=== PATIENT | female | born 1960 | race Two or more races ===

== ENCOUNTER 2017-08-09 13:35 | Emergency (ER) | payer MEDICAID ==
[~2017-08-09] VITALS: Ht 157.5 cm; Wt 70.8 kg
[2017-08-09] MEDS ORDERED: NKM (13:48)
[2017-08-09] MEDS ORDERED: Lidocaine 2% Visc 15ml soln ORAL ONE (14:00)
[2017-08-09] MEDS ORDERED: Mylanta II UD 30ml ORAL ONE (14:00)
[2017-08-09] MEDS ORDERED: Dicyclomine HCl 10mg/5ml oral soln ORAL ONE (14:00)
--- NOTE | 2017-08-09 14:23 | Emergency Room Report ---
History of Present Illness General Chief Complaint: Abdominal Pain Source: Patient (Alec Ang M.D.) Present Illness HPI 57 with no sig pmhx p/w abdominal pain 2 hours. Patient states pain started suddenly, localized to epigastric and right upper quadrant, non radiating, sharp in nature, intermittent. No relieving or exacerbating factors. Severity is 5/10. Denies nvd. Denies fever, chills. No hx of abdominal surgeries. No hx of endoscopies/colonoscopies. (Alec Ang M.D.) Allergies: Coded Allergies: No Known Allergies (Unverified , 08/09/17) Patient History Past Medical History: see triage record Past Surgical History: none Pertinent Family History: none Reviewed Nursing Documentation: PMH: Agreed, PSxH: Agreed (Alec Ang M.D. ) Nursing Documentation-PMH Past Medical History: No Stated History (Alec Ang M.D.) Review of Systems All Other Systems: negative except mentioned in HPI (Alec Ang M.D.) Physical Exam Vital Signs Date Time Temp Pulse Resp B/P (MAP) Pulse Ox O2 Delivery O2 Flow Rate FiO2 08/09/17 13:41 98.1 72 16 174/96 100 Room Air Sp02 EP Interpretation: reviewed, normal General Appearance: alert, GCS 15, non-toxic, mild distress Head: normocephalic, atraumatic Eyes: bilateral eye normal inspection, bilateral eye PERRL, bilateral eye EOMI ENT: normal ENT inspection, normal pharynx, normal voice, moist mucus membranes Neck: normal inspection, full range of motion, supple Respiratory: normal inspection, lungs clear, normal breath sounds, no respiratory distress, no retraction, no wheezing, speaking full sentences, chest symmetrical Cardiovascular #1: normal inspection, regular rate, rhythm, no edema, normal capillary refill Cardiovascular #2: 2+ radial (R), 2+ radial (L) Gastrointestinal: soft, non-distended, no guarding, other - Mild right upper quadrant and epigastric tenderness, no guarding no rebound nontender all other quadrants Musculoskeletal: normal inspection, back normal, normal range of motion, non- tender Neurologic: normal inspection, alert, oriented x3, responsive, motor strength/ tone normal, sensory intact, normal gait, speech normal Psychiatric: normal inspection, judgement/insight normal, memory normal Skin: normal inspection, normal color, no rash, warm/dry, well hydrated, normal turgor (Alec Ang M.D.) Medical Decision Making Diagnostic Impression: Primary Impression: Biliary colic Additional Impression: Cholelithiasis ER Course 37-year-old female with abdominal pain Differential Diagnosis: Gastritis, gastroenteritis, cholecystitis, , UTI/pyelo At this time abdomen is nontender all quadrants aside from right upper quadrant , will hold CT for now. Plan: Basic labs, ua, ekg Pepcid, maalox, pain control, IVF RUQ sono ER course: Patient has remained stable during ED stay. Signed out the patient to Dr. Mascorro 57-year-old female with epigastric/right upper quadrant pain Pending remaining labs Pending abdominal sonogram Anticipate discharge home . Please note that this Emergency Department Report was dictated using powervaultindustrial technician technology software, occasionally this can lead to erroneous entry secondary to interpretation by the dictation equipment (Alec Ang M.D.) ER Course With the history exam and presentation, multiple differentials considered, including but not limited to appendicitis, gastritis, cholecystitis, diverticulitis Please defer to the initial history for the examination and presentation At this time patient reports that her pain is significantly improved Ultrasound reveals gallstones There is no obvious signs of pericholecystic fluid Indeterminate ultrasound for cholecystitis Gallbladder wall does not appear thickened Given the patient's improvement in pain Patient's blood work also negative white blood cells are normal Liver function tests all within normal limits with a negative lipase Obstruction also less likely I feel the patient is stable for initial conservative outpatient trial Patient was discussed regarding the need to return to the ER with any worsening symptoms increase fevers or pain as his be signs of developing infection of the gallbladder And the patient will otherwise follow up with primary physician next 2-3 days, Labs Test 08/09/17 14:00 08/09/17 15:41 White Blood Count 7.3 K/UL (4.8-10.8) Red Blood Count 4.74 M/UL (4.20-5.40) Hemoglobin 14.4 G/DL (12.0-16.0) Hematocrit 44.4 % (37.0-47.0) Mean Corpuscular Volume 94 FL (80-99) Mean Corpuscular Hemoglobin 30.3 PG (27.0-31.0) Mean Corpuscular Hemoglobin Concent 32.3 G/DL (32.0-36.0) Red Cell Distribution Width 12.5 % (11.6-14.8) Platelet Count 375 K/UL (150-450) Mean Platelet Volume 5.6 FL (6.5-10.1) Neutrophils (%) (Auto) 64.4 % (45.0-75.0) Lymphocytes (%) (Auto) 28.2 % (20.0-45.0) Monocytes (%) (Auto) 5.3 % (1.0-10.0) Eosinophils (%) (Auto) 1.4 % (0.0-3.0) Basophils (%) (Auto) 0.8 % (0.0-2.0) Sodium Level 140 MMOL/L (136-145) Potassium Level 3.7 MMOL/L (3.5-5.1) Chloride Level 103 MMOL/L (98-107) Carbon Dioxide Level 29 MMOL/L (21-32) Anion Gap 8 (5-15) Blood Urea Nitrogen 16 mg/dL (7-18) Creatinine 1.0 MG/DL (0.55-1.30) Estimat Glomerular Filtration Rate 57.1 mL/min (>60) Glucose Level 148 MG/DL (74-106) Calcium Level 8.9 MG/DL (8.5-10.1) Total Bilirubin 0.3 MG/DL (0.2-1.0) Aspartate Amino Transf (AST/SGOT) 38 U/L (15-37) Alanine Aminotransferase (ALT/SGPT) 33 U/L (12-78) Alkaline Phosphatase 126 U/L (46-116) Troponin I 0.002 ng/mL (0.000-0.056) Total Protein 7.2 G/DL (6.4-8.2) Albumin 3.8 G/DL (3.4-5.0) Globulin 3.4 g/dL Albumin/Globulin Ratio 1.1 (1.0-2.7) Lipase 141 U/L (73-393) (GRETCHEN MASCORRO.Saurabh) EKG Diagnostic Results Rate: normal Rhythm: NSR ST Segments: no acute changes ASA given to the pt in ED: No (Alec Ang M.D.) Rhythm Strip Diag. Results EP Interpretation: yes Rate: 60 Rhythm: NSR, no PVC's, no ectopy (Alec Ang M.D.) CT/MRI/US Diagnostic Results CT/MRI/US Diagnostic Results : Impression abdominal ultrasoundImpression: Cholelithiasis. Positive sonographic Cramer's sign raises concern for acute cholecystitis. Consider nuclear medicine hepatobiliary scanning is clinically indicated Negative for dilated ducts or other significant abnormality Findings discussed by phone with Dr. Mascorro at the time of interpretation (GRETCHEN MASCORRO D.O.) Last Vital Signs Date Time Temp Pulse Resp B/P (MAP) Pulse Ox O2 Delivery O2 Flow Rate FiO2 08/09/17 13:41 98.1 72 16 174/96 100 Room Air (Alec Ang M.D.) Status: improved (GRETCHEN MASCORRO D.O.) Disposition: HOME, SELF-CARE Condition: Improved Scripts Famotidine (PEPCID) 40 Mg Tablet 40 MG PO DAILY, #7 TAB 0 Refills Prov: GRETCHEN MASCORRO D.O. 08/09/17 Ibuprofen* (MOTRIN*) 600 Mg Tablet 600 MG ORAL Q8H Y for For Pain, #30 TAB 0 Refills Prov: GRETCHEN MASCORRO D.O. 08/09/17 Hydrocodone Bit/Acetaminophen 5-325* (NORCO 5-325*) 1 Each Tablet 1 TAB ORAL Q6H Y for For Pain, #10 TAB 0 Refills Prov: GRETCHEN MASCORRO D.O. 08/09/17 Additional Instructions: Patient is provided with the discharge instructions notified to follow up with primary doctor in the next 2-3 days otherwise return to the er with any worsening symptoms. Please note that this report is being documented using [employer] technology. This can lead to erroneous entry secondary to incorrect interpretation by the dictating instrument. Alec Ang M.D. Aug 09, 2017 14:23 GRETCHEN MASCORRO D.O. Aug 09, 2017 16:21
[2017-08-09 14:24] LABS: BASOPHILS % (AUTO) 0.8 % (0.0-2.0); EOSINOPHILS % (AUTO) 1.4 % (0.0-3.0); LYMPHOCYTES % (AUTO) 28.2 % (20.0-45.0); MEAN CORPUSCULAR HEMOGLOBIN 30.3 PG (27.0-31.0); MEAN CORPUSCULAR HGB CONC 32.3 G/DL (32.0-36.0); MEAN CORPUSCULAR VOLUME 94 FL (80-99); MEAN PLATELET VOLUME 5.6 FL (6.5-10.1); MONOCYTES % (AUTO) 5.3 % (1.0-10.0); NEUTROPHILS % (AUTO) 64.4 % (45.0-75.0); PLATELET COUNT 375 K/UL (150-450); RED BLOOD COUNT 4.74 M/UL (4.20-5.40); RED CELL DISTRIBUTION WIDTH 12.5 % (11.6-14.8); WHITE BLOOD COUNT 7.3 K/UL (4.8-10.8)
[2017-08-09 14:51] LABS: ALANINE AMINOTRANSFERASE 33 U/L (12-78); ALBUMIN/GLOBULIN RATIO 1.1 (1.0-2.7); ANION GAP 8 (5-15); ASPARTATE AMINO TRANSFERASE 38 U/L (15-37); CALCIUM 8.9 MG/DL (8.5-10.1); CARBON DIOXIDE 29 MMOL/L (21-32); CHLORIDE 103 MMOL/L (98-107); GLOMERULAR FILTRATION RATE 57.1 mL/min (>60); LIPASE 141 U/L (73-393); POTASSIUM 3.7 MMOL/L (3.5-5.1); SODIUM 140 MMOL/L (136-145); TOTAL PROTEIN 7.2 G/DL (6.4-8.2)
[2017-08-09 15:10] VITALS: BP 156/93
--- NOTE | 2017-08-09 16:12 | Diagnostic Imaging Report ---
Indication: Abdominal pain Technique: [place]-scale and duplex images of the upper abdomen were obtained Comparison: None Findings: Gallbladder demonstrates stones and sludge. It is distended. Technologist reports positive sonographic Cramer's sign. The wall is not thickened and there is no pericholecystic fluid, however. Sonographic Cramer's sign is negative. Common bile duct measures 5 mm in diameter. No intrahepatic biliary ductal dilatation. Liver demonstrates normal echogenicity, no focal abnormality. Portal vein and hepatic veins are patent. Pancreas is unremarkable. Spleen is unremarkable. Left kidney measures 9.9 cm in length. Right kidney measures 10.8 cm length. Both kidneys demonstrate normal echogenicity. There is no hydronephrosis. No focal abnormality . Non-aneurysmal abdominal aorta . Impression: Cholelithiasis. Positive sonographic Cramer's sign raises concern for acute cholecystitis. Consider nuclear medicine hepatobiliary scanning is clinically indicated Negative for dilated ducts or other significant abnormality Findings discussed by phone with Dr. Lucas at the time of interpretation
[2017-08-09] MEDS ORDERED: PEPCID40 MG PO (16:16)
[2017-08-09] MEDS ORDERED: IBUPROFEN600 MG ORAL (16:16)
[2017-08-09] MEDS ORDERED: NORCO 5-325 TA1 EACH ORAL (16:16)
[2017-08-09 16:24] LABS: APPEARANCE,URINE CLEAR; KETONES,URINE NEGATIVE (NEGATIVE); LEUKOCYTE ESTERASE ,URINE NEGATIVE (NEGATIVE); NITRITE,URINE NEGATIVE (NEGATIVE); PH,URINE 6 (4.5-8.0); PROTEIN,URINE NEGATIVE (NEGATIVE); UROBILINOGEN,URINE NORMAL MG/DL (0.0-1.0)
[2017-08-09 16:35] VITALS: BP 146/89
--- NOTE | 2017-08-22 12:21 | Cardiology Report ---
APPROVED REPORT EKG Measurement Heart [id number] Normal sinus rhythm Normal ECG
== END 2017-08-09 16:44 | disposition home or self-care (01) ==
LOC: EMR 15:10
DX: K80.50 Calculus of bile duct without cholangitis or cholecystitis without obstruction (principal); K80.20 Calculus of gallbladder without cholecystitis without obstruction
CPT/HCPCS: 36415; 76700; 80053; 81003; 83690; 84484; 85025; 93005; 96374; 99284; S0028